=== PATIENT | female | born 2000 | race Caucasian/White ===

== ENCOUNTER 2018-05-22 12:58 | Emergency (ER) | payer OTHER ==
[~2018-05-22] VITALS: Ht 167.6 cm; Wt 96.6 kg
[2018-05-22 13:05] VITALS: Ht 167.6 cm; Wt 96.6 kg
[2018-05-22 15:18] LABS: BASOPHIL % 0.4 % (0-2); PLATELET COUNT 393 x10^3mcL (130-400)
[2018-05-22 15:22] LABS: RED CELL DISTRIBUTION WIDTH 17.8 % (11.5-14.5)
[2018-05-22 15:27] LABS: CALCIUM 9.1 mg/dL (8.5-10.1); CARBON DIOXIDE 29.1 mmol/L (21-32); CHLORIDE SERUM 99 mmol/L (98-107); CREATININE SERUM 0.9 mg/dL (0.6-1.0); GFR1 > 60 mL/min; GLUCOSE SERUM 104 mg/dL (74-106); POTASSIUM SERUM 4.4 mmol/L (3.5-5.1); SODIUM SERUM 137 mmol/L (136-145)
[2018-05-22 15:32] LABS: ALBUMIN 3.8 g/dL (3.4-5.0); ALKALINE PHOSPHATASE 104 U/L (46-116); ALT/SGPT 22 U/L (14-59); AST/SGOT 15 U/L (15-37); BILIRUBIN TOTAL 0.2 mg/dL (0.20-1.00); LIPASE 140 IU/L (73-393); TOTAL PROTEIN, SERUM 8.9 g/dL (6.4-8.2)
[2018-05-22 16:29] VITALS: BP 131/62
== END 2018-05-22 16:29 | disposition home or self-care (01) ==
LOC: ED 12:58
PROVIDERS: Emergency Medicine
DX: R10.9 Unspecified abdominal pain (principal); R11.10 Vomiting, unspecified; R35.0 Frequency of micturition; R30.0 Dysuria
CPT/HCPCS: 36415

== ENCOUNTER 2018-06-27 22:32 | Emergency (ER) | payer OTHER ==
[~2018-06-27] VITALS: Ht 165.1 cm; Wt 95.3 kg
[2018-06-27 22:51] VITALS: Ht 165.1 cm; Wt 95.3 kg
[2018-06-28 00:04] LABS: BASOPHIL % 0.4 % (0-2); PLATELET COUNT 301 x10^3mcL (130-400)
[2018-06-28 00:16] LABS: CALCIUM 8.7 mg/dL (8.5-10.1); CARBON DIOXIDE 26.9 mmol/L (21-32); CHLORIDE SERUM 102 mmol/L (98-107); CREATININE SERUM 0.7 mg/dL (0.6-1.0); GFR1 > 60 mL/min; GLUCOSE SERUM 94 mg/dL (74-106); POTASSIUM SERUM 3.4 mmol/L (3.5-5.1); SODIUM SERUM 136 mmol/L (136-145)
[2018-06-28 00:21] LABS: ALBUMIN 3.6 g/dL (3.4-5.0); ALKALINE PHOSPHATASE 78 U/L (46-116); ALT/SGPT 20 U/L (14-59); AST/SGOT 15 U/L (15-37); BILIRUBIN TOTAL 0.1 mg/dL (0.20-1.00)
[2018-06-28 00:23] LABS: RED CELL DISTRIBUTION WIDTH 18.5 % (11.5-14.5)
[2018-06-28 01:39] VITALS: BP 119/68
== END 2018-06-28 01:57 | disposition home or self-care (01) ==
LOC: ED 22:32
PROVIDERS: Emergency Medicine
DX: O20.0 Threatened abortion (principal)
CPT/HCPCS: J7030

== ENCOUNTER 2019-02-20 13:33 | Emergency (ER) | payer OTHER ==
[~2019-02-20] VITALS: Ht 165.1 cm; Wt 83.9 kg
[2019-02-20 13:43] VITALS: Ht 165.1 cm; Wt 83.9 kg
[2019-02-20 14:31] LABS: BASOPHIL % 0.3 % (0-2); PLATELET COUNT 346 x10^3mcL (130-400)
[2019-02-20 14:33] LABS: RED CELL DISTRIBUTION WIDTH 18.9 % (11.5-14.5)
[2019-02-20 15:16] LABS: CALCIUM 8.8 mg/dL (8.5-10.1); CHLORIDE SERUM 104 mmol/L (98-107); CREATININE SERUM 0.8 mg/dL (0.6-1.0); GFR1 > 60 mL/min; GLUCOSE SERUM 90 mg/dL (74-106); POTASSIUM SERUM 4.1 mmol/L (3.5-5.1); SODIUM SERUM 142 mmol/L (136-145)
[2019-02-20 15:21] LABS: ALBUMIN 3.8 g/dL (3.4-5.0); ALKALINE PHOSPHATASE 92 U/L (46-116); ALT/SGPT 16 U/L (14-59); AST/SGOT 10 U/L (15-37); BILIRUBIN TOTAL 0.5 mg/dL (0.20-1.00); LIPASE 114 IU/L (73-393); TOTAL PROTEIN, SERUM 8.1 g/dL (6.4-8.2)
[2019-02-20 15:34] LABS: microscopic required? YES; urine erythrocyte 2+ (NEGATIVE)
[2019-02-20 16:51] VITALS: BP 107/61
== END 2019-02-20 16:51 | disposition home or self-care (01) ==
LOC: ED 13:33
PROVIDERS: Emergency Medicine
DX: K29.70 Gastritis, unspecified, without bleeding (principal); N93.9 Abnormal uterine and vaginal bleeding, unspecified; F17.210 Nicotine dependence, cigarettes, uncomplicated
CPT/HCPCS: 36415; Q0162

== ENCOUNTER 2019-02-20 21:50 | Emergency (ER) | payer OTHER ==
[~2019-02-20] VITALS: Ht 165.1 cm; Wt 85.7 kg
[2019-02-20 22:22] VITALS: Ht 165.1 cm; Wt 85.7 kg
[2019-02-21 00:17] VITALS: BP 103/62
== END 2019-02-21 00:17 | disposition home or self-care (01) ==
LOC: ED 21:50
DX: S40.021A Contusion of right upper arm, initial encounter (principal); X58.XXXA Exposure to other specified factors, initial encounter; Y93.89 Activity, other specified; Y92.89 Other specified places as the place of occurrence of the external cause; Y99.8 Other external cause status

== ENCOUNTER 2019-03-16 14:05 | Emergency (ER) | payer OTHER ==
[~2019-03-16] VITALS: Ht 165.1 cm; Wt 72.6 kg
[2019-03-16 14:19] VITALS: Ht 165.1 cm; Wt 72.6 kg
[2019-03-16 14:34] LABS: CALCIUM 9.2 mg/dL (8.5-10.1); CARBON DIOXIDE 24.7 mmol/L (21-32); CHLORIDE SERUM 104 mmol/L (98-107); CREATININE SERUM 0.9 mg/dL (0.6-1.0); GFR1 > 60 mL/min; GLUCOSE SERUM 93 mg/dL (74-106); SODIUM SERUM 141 mmol/L (136-145)
[2019-03-16 14:38] LABS: BASOPHIL % 0.3 % (0-2); PLATELET COUNT 284 x10^3mcL (130-400)
[2019-03-16 14:39] LABS: ALBUMIN 3.9 g/dL (3.4-5.0); ALKALINE PHOSPHATASE 98 U/L (46-116); ALT/SGPT 16 U/L (14-59); AST/SGOT 12 U/L (15-37); BILIRUBIN TOTAL 0.3 mg/dL (0.20-1.00)
[2019-03-16 14:41] LABS: AMPHETAMINE QUAL UR NONE DETECTED (See below)
[2019-03-16 14:47] LABS: TOTAL PROTEIN, SERUM 8.5 g/dL (6.4-8.2)
[2019-03-16 14:50] LABS: RED CELL DISTRIBUTION WIDTH 18.1 % (11.5-14.5)
--- NOTE | 2019-03-16 18:53 | NUR ---
[facility] received pt packet via fax. Began looking for placement. Packet faxed to [facility]. No beds but will review packet for potential openings. 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 Will contact with updates.
[2019-03-16 20:58] VITALS: BP 122/67
== END 2019-03-16 20:35 ==
LOC: ED 14:05
PROVIDERS: Emergency Medicine
DX: T14.91XA Suicide attempt, initial encounter (principal); T50.905A Adverse effect of unspecified drugs, medicaments and biological substances, initial encounter; X83.8XXA Intentional self-harm by other specified means, initial encounter; Y93.89 Activity, other specified; Y92.89 Other specified places as the place of occurrence of the external cause; Y99.8 Other external cause status
CPT/HCPCS: 36415; G0480

== ENCOUNTER 2019-07-05 16:49 | Emergency (ER) | payer OTHER ==
[~2019-07-05] VITALS: Ht 162.6 cm; Wt 90.3 kg
[2019-07-05 17:04] VITALS: Ht 162.6 cm; Wt 90.3 kg
[2019-07-05 17:29] VITALS: BP 120/73
== END 2019-07-05 17:29 | disposition home or self-care (01) ==
LOC: ED 16:49
DX: J06.9 Acute upper respiratory infection, unspecified (principal)

== ENCOUNTER 2019-12-26 18:47 | Emergency (ER) | payer OTHER ==
[~2019-12-26] VITALS: Ht 162.6 cm; Wt 97.1 kg
[2019-12-26 18:53] VITALS: Ht 162.6 cm; Wt 97.1 kg
[2019-12-26 20:27] LABS: BASOPHIL % 0.2 % (0-2); PLATELET COUNT 327 x10^3mcL (130-400)
[2019-12-26 20:29] LABS: RED CELL DISTRIBUTION WIDTH 16.6 % (11.5-14.5)
[2019-12-26 20:44] LABS: CALCIUM 8.6 mg/dL (8.5-10.1); CARBON DIOXIDE 27.9 mmol/L (21-32); CHLORIDE SERUM 102 mmol/L (98-107); CREATININE SERUM 0.8 mg/dL (0.6-1.0); GFR1 > 60 mL/min; GLUCOSE SERUM 98 mg/dL (74-106); POTASSIUM SERUM 3.8 mmol/L (3.5-5.1); SODIUM SERUM 137 mmol/L (136-145)
[2019-12-26 20:49] LABS: ALBUMIN 3.6 g/dL (3.4-5.0); ALKALINE PHOSPHATASE 83 U/L (46-116); ALT/SGPT 13 U/L (14-59); AST/SGOT 7 U/L (15-37); BILIRUBIN TOTAL 0.32 mg/dL (0.20-1.00); TOTAL PROTEIN, SERUM 7.9 g/dL (6.4-8.2)
[2019-12-26 23:50] VITALS: BP 105/61
== END 2019-12-26 23:50 | disposition home or self-care (01) ==
LOC: ED 18:47
PROVIDERS: Specialist
DX: O43.891 Other placental disorders, first trimester (principal); Z3A.01 Less than 8 weeks gestation of pregnancy

== ENCOUNTER 2020-02-14 07:23 | Emergency (ER) | payer OTHER ==
[~2020-02-14] VITALS: Ht 165.1 cm; Wt 94.8 kg
[2020-02-14 07:59] VITALS: Ht 165.1 cm; Wt 94.8 kg
[2020-02-14 08:35] VITALS: BP 129/82
== END 2020-02-14 08:35 | disposition home or self-care (01) ==
LOC: ED 07:23
DX: O26.892 Other specified pregnancy related conditions, second trimester (principal); L30.9 Dermatitis, unspecified; Z3A.13 13 weeks gestation of pregnancy

== ENCOUNTER 2020-02-26 19:34 | Emergency (ER) | payer OTHER ==
[~2020-02-26] VITALS: Ht 165.1 cm; Wt 95.0 kg
[2020-02-26 19:44] VITALS: Ht 165.1 cm; Wt 95.0 kg
[2020-02-26 20:41] LABS: BASOPHIL % 0.1 % (0-2); PLATELET COUNT 233 x10^3mcL (130-400); RED CELL DISTRIBUTION WIDTH 16.1 % (11.5-14.5)
[2020-02-26 21:01] LABS: CALCIUM 8.9 mg/dL (8.5-10.1); CARBON DIOXIDE 26.3 mmol/L (21-32); CHLORIDE SERUM 99 mmol/L (98-107); CREATININE SERUM 0.9 mg/dL (0.6-1.0); GFR1 > 60 mL/min; GLUCOSE SERUM 96 mg/dL (74-106); POTASSIUM SERUM 3.7 mmol/L (3.5-5.1); SODIUM SERUM 133 mmol/L (136-145)
[2020-02-26 21:06] LABS: ALKALINE PHOSPHATASE 94 U/L (46-116); ALT/SGPT 18 U/L (14-59); AST/SGOT 17 U/L (15-37); BILIRUBIN TOTAL 0.31 mg/dL (0.20-1.00); TOTAL PROTEIN, SERUM 7.6 g/dL (6.4-8.2)
[2020-02-26 21:07] LABS: ALBUMIN 2.9 g/dL (3.4-5.0)
[2020-02-26 22:57] VITALS: BP 107/54
== END 2020-02-26 22:55 | disposition home or self-care (01) ==
LOC: ED 19:34
PROVIDERS: Emergency Medicine
DX: O99.512 Diseases of the respiratory system complicating pregnancy, second trimester (principal); B34.9 Viral infection, unspecified; Z3A.15 15 weeks gestation of pregnancy; Z20.828 Contact with and (suspected) exposure to other viral communicable diseases
CPT/HCPCS: J2405; J7030; U0003-CS

== ENCOUNTER 2020-05-10 17:10 | Emergency (ER) | payer OTHER | END 2020-05-10 18:28 | disposition other institution (70) | LOC: ED 17:10 | DX: Z02.89 Encounter for other administrative examinations (principal) ==

== ENCOUNTER 2020-05-10 17:10 | Emergency (ER) | payer OTHER ==
[~2020-05-10] VITALS: Ht 165.1 cm; Wt 104.3 kg
[2020-05-10 17:22] VITALS: Ht 165.1 cm; Wt 104.3 kg
[2020-05-10 18:28] VITALS: BP 124/59
== END 2020-05-10 18:28 | disposition other institution (70) ==
LOC: ED 17:10
DX: O26.892 Other specified pregnancy related conditions, second trimester (principal); O99.212 Obesity complicating pregnancy, second trimester; Z68.38 Body mass index [BMI] 38.0-38.9, adult; Z02.79 Encounter for issue of other medical certificate

== ENCOUNTER 2020-06-13 16:06 | Emergency (ER) | payer OTHER ==
[~2020-06-13] VITALS: Ht 162.6 cm; Wt 112.0 kg
[2020-06-13 16:36] VITALS: BP 105/65; Ht 162.6 cm; Wt 112.0 kg
== END 2020-06-13 17:56 | disposition left against medical advice (07) ==
LOC: ED 16:06
DX: Z53.21 Procedure and treatment not carried out due to patient leaving prior to being seen by health care provider (principal)